=== PATIENT | male | born 1990 | race Caucasian/White ===

== ENCOUNTER 2017-02-07 23:35 | Emergency (ER) | payer OTHER ==
[~2017-02-07] VITALS: Ht 177.8 cm; Wt 100.0 kg
[2017-02-08 00:53] VITALS: BP 123/82
== END 2017-02-08 01:03 | disposition home or self-care (01) ==
LOC: EMS 23:36
DX: M25.562 Pain in left knee (principal); R03.0 Elevated blood-pressure reading, without diagnosis of hypertension; X50.0XXA Overexertion from strenuous movement or load, initial encounter; Y93.66 Activity, soccer; Y92.89 Other specified places as the place of occurrence of the external cause; Y99.8 Other external cause status
CPT/HCPCS: 29505; 99284

== ENCOUNTER 2017-06-18 22:53 | Emergency (ER) | payer OTHER ==
[~2017-06-18] VITALS: Ht 175.3 cm; Wt 84.1 kg
[2017-06-19 00:42] VITALS: BP 118/79
[2017-06-19] MEDS ORDERED: NAPROXEN 250 MG TABLET PO ONE (01:00)
[2017-06-19] MEDS ORDERED: HYDROCODONE/ACETAMINOPHEN 5-325 MG TABLET PO ONE (01:00)
== END 2017-06-19 01:11 | disposition home or self-care (01) ==
LOC: EMS 22:58
DX: S90.112A Contusion of left great toe without damage to nail, initial encounter (principal); W23.0XXA Caught, crushed, jammed, or pinched between moving objects, initial encounter; Y93.66 Activity, soccer; Y92.89 Other specified places as the place of occurrence of the external cause; Y99.8 Other external cause status
CPT/HCPCS: 99284

== ENCOUNTER 2017-09-25 22:51 | Emergency (ER) | payer OTHER ==
[~2017-09-25] VITALS: Ht 177.8 cm; Wt 101.0 kg
[2017-09-26] MEDS ORDERED: MORPHINE SULFATE 4 MG/ML SYRINGE IM ONE (00:15)
[2017-09-26] MEDS ORDERED: PROMETHAZINE HCL 25 MG TABLET PO ONE (00:15)
[2017-09-26 01:54] VITALS: BP 133/77
== END 2017-09-26 01:55 | disposition home or self-care (01) ==
LOC: EMS 22:53
DX: S52.601A Unspecified fracture of lower end of right ulna, initial encounter for closed fracture (principal); X58.XXXA Exposure to other specified factors, initial encounter; Y93.66 Activity, soccer; Y92.89 Other specified places as the place of occurrence of the external cause; Y99.8 Other external cause status
CPT/HCPCS: 29125; 73090; 96372; 99284; J2270

== ENCOUNTER 2017-12-31 23:31 | Emergency (ER) | payer OTHER ==
[~2017-12-31] VITALS: Ht 177.8 cm; Wt 100.0 kg
[2018-01-01] MEDS ORDERED: IBUPROFEN 600 MG TABLET PO ONE (01:15)
[2018-01-01 03:12] VITALS: BP 127/82
== END 2018-01-01 03:14 | disposition home or self-care (01) ==
LOC: EMS 23:33
DX: S52.601K Unspecified fracture of lower end of right ulna, subsequent encounter for closed fracture with nonunion (principal); X58.XXXD Exposure to other specified factors, subsequent encounter
CPT/HCPCS: 29105; 99284

== ENCOUNTER 2018-02-28 22:23 | Emergency (ER) | payer OTHER ==
[~2018-02-28] VITALS: Ht 177.8 cm; Wt 100.0 kg
[2018-03-01 00:32] VITALS: BP 127/84
== END 2018-03-01 01:48 | disposition home or self-care (01) ==
LOC: EMS 22:24
DX: S16.1XXA Strain of muscle, fascia and tendon at neck level, initial encounter (principal); S09.90XA Unspecified injury of head, initial encounter; W18.39XA Other fall on same level, initial encounter; Y93.66 Activity, soccer; Y92.89 Other specified places as the place of occurrence of the external cause; Y99.8 Other external cause status
CPT/HCPCS: 70450; 72125

== ENCOUNTER 2018-06-09 18:35 | Emergency (ER) | payer OTHER ==
[~2018-06-09] VITALS: Ht 182.9 cm; Wt 113.6 kg
[2018-06-09 18:39] VITALS: BP 148/78
== END 2018-06-09 19:26 | disposition home or self-care (01) ==
LOC: EMS 18:36
DX: S66.911A Strain of unspecified muscle, fascia and tendon at wrist and hand level, right hand, initial encounter (principal); S96.912A Strain of unspecified muscle and tendon at ankle and foot level, left foot, initial encounter; X50.3XXA Overexertion from repetitive movements, initial encounter; Y93.89 Activity, other specified; Y92.89 Other specified places as the place of occurrence of the external cause; Y99.8 Other external cause status